=== PATIENT | male | born 1975 | race Caucasian/White ===

== ENCOUNTER 2024-08-11 15:11 | Emergency (ER) | payer OTHER, SELFPAY ==
[2024-08-11 15:15] VITALS: BP 144/98; PULSE 81; RESP 16; TEMP 36.9; O2SAT 95; BMI 31.8
[2024-08-11] MEDS: KETOROLAC 30 MG/ML VIAL 15 MG IV (17:19)
[2024-08-11 18:35] VITALS: RESP 14
[2024-08-11 19:25] VITALS: BP 152/94; PULSE 68; RESP 16; O2SAT 97
--- NOTE | 2024-08-11 19:47 | ED_ITS ---
HPI - Extremity Problem General Chief complaint: Extremity Problem,Nontraumatic Stated complaint: random swelling jumping from joint to joint Time Seen by Provider: 08/11/24 18:17 History of Present Illness HPI Narrative: 48-year-old gentleman otherwise healthy with increasing episodes of poly arthritis. Initially noted inflammation and pain in the left knee than the left elbow, left knuckles right elbow right knee right forefoot are all involved. He does not describe fevers, weight loss, cough, shortness of breath may complain of a bit more fatigued recently. Does not have a strong family history for inflammatory arthritis. Comes in today at his sister's request as more and more joints are becoming involved. Related Data Allergies Allergy/AdvReac Type Severity Reaction Status Date / Time No Known Drug Allergies Allergy Verified 08/11/24 15:25 Review of Systems Review of Systems Narrative: Pertinent positive and negative findings as per HPI Patient History Alcohol type: hard liquor Exam Initial Vital Signs Initial Vital Signs: Vital Signs Temperature 98.4 F 08/11/24 15:15 Pulse Rate 81 08/11/24 15:15 Respiratory Rate 16 08/11/24 15:15 Blood Pressure 144/98 H 08/11/24 15:15 Pulse Oximetry 95 08/11/24 15:15 Oxygen Delivery Method Room Air 08/11/24 15:15 General: Healthy appearing, in no acute distress. Able to give a complete and coherent history. Well-nourished well-developed HEENT: Moist mucous membranes, normal sclera with reactive pupils, Respiratory: Lungs are clear to auscultation, no wheezing no rales no rhonchi. Full and symmetrical air movement Cardiac: Regular rate and rhythm no murmurs no bruits Abdomen: Soft, nontender, no rebound or guarding, no flank pain Skin: Warm and dry, no rashes, no plaques or fingernail changes to suggest psoriasis Neurologic: Grossly neurologically intact with no obvious asymmetries or abnormalities Extremities: No trauma, well perfused. Active synovitis currently in for 2nd and 3rd knuckles on the left, mild in the right elbow right knee right midfoot. Psych: Cooperative, appropriate insight and affect Course Orders Ordered: ED Orders 08/11/24 19:42 CBC Auto Diff [Complete Blood Count AUTO DIFF] Stat CCP Antibodies IgG/IgA Stat CMP [Comprehensive Metabolic Panel] Stat CRP [C-Reactive Protein Quant] Stat Erythrocyte Sedimentation Rate Stat Rheumatoid Factor Stat Discontinued Medications Ketorolac Tromethamine (Ketorolac 30 Mg/Ml Vial) 15 mg IV NOW ONE Stop: 08/11/24 17:17 Last Admin: 08/11/24 17:19 Dose: 15 mg Documented By: BETTE Vital Signs Vital signs: Vital Signs - 8 hr 08/11/24 15:15 08/11/24 18:35 08/11/24 19:25 Temperature 98.4 F Pulse Rate 81 68 Respiratory Rate 16 14 16 Blood Pressure 144/98 H 152/94 H Pulse Oximetry 95 97 Oxygen Delivery Method Room Air Room Air MDM - Extremity (Nontraumatic) MDM Narrative Medical decision making narrative: Otherwise healthy 48-year-old gentleman with increasing episodes of arthritis and continued reactive synovitis without significant amounts of systemic symptoms for inflammatory arthritis. He does not currently have a primary care physician. Most likely explanation at this time is some type of inflammatory arthritis, I do not suspect gonococcal arthritis. Labs including CBC, CMP sed rate, CRP, rheumatoid factor, SOLEDAD and anti CCP antibodies are all ordered. Discussed concerns with the patient and recommended that he find a primary care physician, he is given information call [facility], he is unable to get in in a timely manner did suggest trying [facility], we will need follow up with blood work from today, likely will need rheumatology further evaluation. At this point he is not having significant pain and did discuss use of ibuprofen if he does feel discomfort. There was no indication for further imaging or hospitalization, questions are answered and he is safe for discharge Discharge Plan Departure Patient Disposition: Home Clinical Impression: Polyarthritis Instructions: DI for Rheumatoid Arthritis Activity Restrictions/Additional Instructions: Thank you for coming in today I am concerned about the multiple joints that have become inflamed. I am glad that you are not having severe pain at this time. I am concerned that you have 1 of the inflammatory arthritis syndromes. Rheumatoid arthritis is 1 of the inflammatory arthropathies, I have given you information regarding this. The next step in your workup will be to establish with a primary care physician. * if you do not have a primary care physician, you can contact [facility] resource line at [phone]. They can help get you set up with a physician in our local community If you are unable to schedule an appointment through this, you can contact the [facility] and see if they have any availability in the residency clinic or primary care clinics. You can also try primary care providers in [place]. You will need to review results of today's blood work with your new primary care physician, discuss your symptoms and decide on the next steps in your workup to get to a full diagnosis. At some point you may end up with consultation with a photo checker and assembler. Using 400 mg of ibuprofen (2 [id number] pills) and 1 Tylenol every 6 hours can be very helpful in controlling pain. If you find that you are getting worse or develop any new symptoms, please feel free to return to the emergency department for further evaluation. Stand Alone Forms: Patient Portal/API/Survey
[2024-08-11 19:56] LABS: Add Manual Diff / Slide Review NO; Basophils Absolute Auto 100 /uL (0-100); Eosinophils Absolute Auto 100 /uL (0-450); Eosinophils Percent Auto 1.8 % (2-4); Hematocrit 38.5 % (41-53); Hemoglobin 12.9 g/dL (13.5-17.5); Lymphocytes Absolute Auto 1900 /uL (1100-4500); Lymphocytes Percent Auto 24.2 % (25-40); Mean Corpuscular HGB Conc 33.6 % (30-36); Mean Corpuscular Hemoglobin 29.5 PG (26-34); Mean Corpuscular Volume 87.6 fL (80-100); Monocytes Absolute Auto 1000 /uL (0-900); Monocytes Percent Auto 13.3 % (3-14); Neutrophils Absolute Auto 4700 /uL (1500-7000); Neutrophils Percent Auto 59.7 % (50-75); Platelet Count 375 X10^3/uL (150-400); Red Blood Cell Count 4.39 X10^6/uL (4.5-5.9); White Blood Cell Count 7.9 X10^3/uL (4.5-11.0)
[2024-08-11 20:05] LABS: Alanine Aminotransferase 35 IU/L (<50); Albumin 4.4 g/dL (3.5-5.0); Albumin Globulin Ratio 1.3 (1.0-2.8); Alkaline Phosphatase 73 U/L (38-126); Aspartate Aminotransferase 40 IU/L (17-59); BUN Creatinine Ratio 21.3 (6-22); Bilirubin Total 0.5 mg/dL (0.2-1.3); Blood Urea Nitrogen 19 mg/dL (9-20); Calcium 9.2 mg/dL (8.4-10.2); Carbon Dioxide 24 mmol/L (22-32); Chloride 104 mmol/L (98-107); Estimated Glomerular Filt Rate > 60 mL/min (>60); Globulin 3.5 g/dL (1.7-4.1); Glucose 101 mg/dL (70-100); HEMOLYSIS 29 (0-50); Sodium 139 mmol/L (137-145); Total Protein 7.9 g/dL (6.3-8.2)
[2024-08-11 20:07] LABS: Rheumatoid Factor < 8.6 IU/mL (<12.0)
[2024-08-11 20:14] LABS: Erythrocyte Sedimentation Rate 61 MM/HR (0-15)
[2024-08-11 20:17] LABS: C-Reactive Protein Quant 13.8 mg/dL (<1.0)
[2024-08-14 18:36] LABS: CCP Antibodies IgG/IgA 11 units (0-19)
[2024-08-16 14:39] LABS: ANA Screen, IFA Negative (.)
== END 2024-08-11 20:15 | disposition home or self-care (01) ==
PROVIDERS: Emergency Provider Emergency Medicine
DX: M13.0 Polyarthritis, unspecified (principal)
CPT/HCPCS: 36415; 80053; 85025; 85651; 86038; 86140; 86200; 86430; 99284; J1885